=== PATIENT | female | born 1940 | race African-American/Black ===

== ENCOUNTER 2025-06-11 16:29 | Emergency (ER) | payer MEDICARE ==
[~2025-06-11] VITALS: Ht 167.6 cm; Wt 68.0 kg
[2025-06-11 16:48] VITALS: O2SAT 98
[2025-06-11 16:51] VITALS: BP 161/82; PULSE 80; RESP 16; TEMP 36.6; O2SAT 98
== END 2025-06-11 20:03 | disposition left against medical advice (07) ==
LOC: ER 16:29
DX: M25.661 Stiffness of right knee, not elsewhere classified (principal); Z98.890 Other specified postprocedural states; Z53.21 Procedure and treatment not carried out due to patient leaving prior to being seen by health care provider
CPT/HCPCS: 73560